=== PATIENT | female | born 1945 | race Caucasian/White ===

== ENCOUNTER → 2017-01-08 | Outpatient (CLI) | payer BC, MEDICARE ==
--- NOTE | 2017-01-08 16:19 | CT ---
EXAMINATION TYPE: CT sinus wo con DATE OF EXAM: 01/08/2017 COMPARISON: NONE HISTORY: Patient complains of chronic sinus drainage and stuffiness. CT DLP: 590.1 mGycm Automated exposure control for dose reduction was used. FINDINGS: Helical acquisition through the sinuses. Minimal inflammatory change present within the right maxillary sinus. Antrostomies have been performe d bilaterally. No air-fluid level to suggest acute sinusitis. Orbits show symmetric appearance. Visua lized brain shows some cortical atrophy which is likely age-related. Cerebral vascular calcifications are noted. IMPRESSION: POSTOP CHANGE, MINIMAL INFLAMMATORY CHANGE RIGHT MAXILLARY SINUS
== END | disposition home or self-care (01) ==
LOC: RADCTMAIN 15:50
PROVIDERS: ATTEND Otolaryngology
DX: J32.0 Chronic maxillary sinusitis (principal)
CPT/HCPCS: 70486

== ENCOUNTER → 2019-06-19 | Outpatient (CLI) | payer BC ==
--- NOTE | 2019-06-20 10:08 | MM ---
Reason for exam: screening (asymptomatic). Last mammogram was performed 3 years and 10 months ago. History: Patient is postmenopausal and is nulliparous. Family history of premenopausal breast cancer in maternal cousin at age 38. Benign excisional biopsy of the left breast, 1997. Reductions of both breasts. Took hormonal contraceptives for 5 years beginning at age 27. Took estrogen for 1 year 2 months beginning at age 61. Took progesterone for 15 years beginning at age 42. Physical Findings: A clinical breast exam by your physician is recommended on an annual basis and results should be correlated with mammographic findings. MG 3D Screening Mammo W/Cad Bilateral CC and MLO view(s) were taken. Prior study comparison: November 27, 2011, CAD bilateral diagnostic mammogram. October 28, 2010, bilateral digital screening mammo w/CAD. The breast tissue is heterogeneously dense. This may lower the sensitivity of mammography. Finding #1: Stable architectural distortion in the upper outer quadrant of the left breast consistent with known excisional biopsy. Finding #2: There are typically benign round calcifications in both breasts. There is no discrete abnormality. ASSESSMENT: Benign, BI-RAD 2 RECOMMENDATION: Routine screening mammogram of both breasts in 1 year.
== END | disposition home or self-care (01) ==
LOC: RADMAMWWP 13:10
PROVIDERS: ATTEND Family Medicine
DX: Z12.31 Encounter for screening mammogram for malignant neoplasm of breast (principal)
CPT/HCPCS: 77063; 77067

== ENCOUNTER → 2020-04-12 | Outpatient (CLI) | payer BC | END | disposition home or self-care (01) | LOC: LABWHC1 13:49 | PROVIDERS: ATTEND Internal Medicine Hematology & Oncology | DX: I10 Essential (primary) hypertension (principal); E03.9 Hypothyroidism, unspecified | CPT/HCPCS: U0003; C9803 ==

== ENCOUNTER 2021-06-20 09:25 | Day surgery (SDC) | payer BC ==
[2021-06-18 10:09] VITALS: BMI 24.0
[~2021-06-20 09:25] MED LIST: LACTATED RINGERS 1,000 ML IV SCH; LIDOCAINE 1% (10MG/ML) FOR IV START INTRADERMA PRN
[2021-06-20 09:47] VITALS: TEMP 96.8
[2021-06-20] MEDS ORDERED: ONDANSETRON 4 MG/2 ML VIAL ONE (09:52)
[2021-06-20] MEDS ORDERED: LIDOCAINE 1% INJ 10MG/ML (20 ML MDV) ONE (10:07)
[2021-06-20] MEDS ORDERED: PROPOFOL 10 MG/ML 20 ML VIAL IV ONE (10:07)
--- NOTE | 2021-06-20 10:35 | P.PCN ---
Date of Procedure: 06/20/21 Preoperative Diagnosis: GERD Screening Postoperative Diagnosis: Gastritis Duodenitis Incomplete colonoscopy, poor prep Procedure(s) Performed: EGD with biopsy Incomplete colonoscopy Anesthesia: MAC Surgeon: Curry Callaway Pathology: other (Biopsies of the esophagus, antrum, duodenum) Condition: stable Disposition: same day Indications for Procedure: 76-year-old female presents today for upper and lower endoscopy. She does have a history of gastric esophageal reflux disease. He is due for screening colonoscopy. Risks, benefits and alternatives were provided to the patient. She did provide consent prior to attending the endoscopy suite. Operative Findings: Gastritis Duodenitis Solid stool within the colon with decreased visibility, incomplete colonoscopy Description of Procedure: The patient was brought to the endoscopy suite and placed in left lateral decubitus position and adequate sedation was achieved using conscious sedation. A bite block was placed and an endoscope was placed in the oropharynx and advanced under endoscopic visualization. The endoscope was advanced through the esophagus into the stomach, through the gastric antrum and into the pylorus. The third portion of the duodenum was visualized. The endoscope was then slowly withdrawn. The first portion the duodenum was noted to have inflammatory changes. Biopsies were taken. The antrum was noted to have inflammatory changes. Biopsies were taken. The gastric body distended normally and the gastric folds appeared normal and flattened with insufflation. A retroflexed view of the fundus and GE junction revealed an overall intact previous wrap repair. The distal esophagus appeared endoscopically normal and widely patent. No evidence of stenosis or stricture of the entire esophagus. Excess air was removed and the scope was withdrawn. A digital rectal exam was performed and mild internal hemorrhoids were palpated. An endoscope was then placed in the rectum and advanced to approximately the 30 cm kalin. The prep was quite poor. Solid stool still remained throughout the colon and visibility was extremely diminished. Secondary to this, continuing was deemed unsafe with no visibility and it was decided to abort the procedure. Excess air was removed, the colonoscope withdrawn and the procedure terminated. The patient was then transferred to the recovery unit in stable condition. Repeat colonoscopy should be performed in the next year for screening purposes with different prep.
[2021-06-20 10:54] VITALS: BP 136/81; PULSE 71; RESP 18
== END 2021-06-20 11:20 | disposition home or self-care (01) ==
LOC: ORWHC2ENDO 09:25
PROVIDERS: ATTEND Surgery
DX: Z12.11 Encounter for screening for malignant neoplasm of colon (principal); K29.70 Gastritis, unspecified, without bleeding; K29.80 Duodenitis without bleeding; K21.00 Gastro-esophageal reflux disease with esophagitis, without bleeding
CPT/HCPCS: 88305; 45378; 43239; J2405; J2001; J2704

== ENCOUNTER → 2022-02-25 | Outpatient (CLI) | payer BC ==
--- NOTE | 2022-02-25 11:01 | MM ---
Reason for Exam: Clinical finding. Additional evaluation requested from abnormal screening. Last mammogram was performed 2 year(s) and 8 month(s) ago. Indicated Problems: Lump or thickening of the left side (size 20) for 3 Day(s). Patient History: Menarche at age 13. Patient has no children. Left ovary removed at age 42. Right ovary removed at age 42. Hysterectomy at age 35. Postmenopausal. Estrogen for 4 years from age 61 until age 65. Progesterone for 15 years from age 42 until age 57. Hormonal Contraceptives for 5 years from age 27 until age 32. Bilateral Reduction. 1997, Benign Excisional Biopsy on the left side. Maternal cousin had breast cancer, age 38. Risk Values: Yajaira 5 year model risk: 2.3%. NCI Lifetime model risk: 4.7%. Prior Study Comparison: 08/17/2013 Screening Mammogram, [facility]. 08/28/2013 Screening Mammogram, [facility]. 07/09/2015 Screening Mammogram, [facility]. 08/12/2015 Screening Mammogram, [facility]. 06/19/2019 Bilateral Screening Mammogram, [facility]. Tissue Density: The breast tissue is heterogeneously dense. This may lower the sensitivity of mammography. Findings: Analyzed By CAD. Mammogram There is new distortion corresponding to palpable abnormality in the upper-outer aspect left breast. Benign-appearing bilateral axillary lymph nodes are redemonstrated. Occasional scattered benign-appearing round calcifications in bilateral breasts is again seen.. Technique: Method: Targeted. Findings: The upper outer quadrant of the left breast and the axilla of the left breast were scanned. Targeted ultrasound left breast 2:00 level approximate 5 cm distance from nipple shows 1.2 x 1.7 irregular hypoechoic mass with some posterior shadowing and some superficial vascularity. Finding worrisome for neoplasm favored over scar tissue. Scanning of the left axilla shows benign appearing subcentimeter lymph node. Overall Assessment: Suspicious, BI-RAD 4 Assessment: MG 3D diag mammo w/cad [place] - Bilateral: Suspicious, BI-RAD 4 - Left. US breast limited LT - Left: Suspicious, BI-RAD 4. Management: Ultrasound Core Biopsy of the left breast. Ultrasound core biopsy left breast 2:00 lesion. Results were given to the patient verbally at the time of exam. Electronically signed and approved by: Den Stone M.D.
== END | disposition home or self-care (01) ==
LOC: RADMAMWWP 08:38
PROVIDERS: ATTEND Family Medicine
DX: R92.8 Other abnormal and inconclusive findings on diagnostic imaging of breast (principal); Z78.0 Asymptomatic menopausal state; Z80.3 Family history of malignant neoplasm of breast
CPT/HCPCS: 77062; 77066

== ENCOUNTER → 2022-03-04 | Day surgery (SDC) | payer BC ==
--- NOTE | 2022-03-09 12:09 | MM ---
Reason for Exam: Post Procedure Mammogram. Last screening mammogram was performed less than 1 month ago. Patient History: Menarche at age 13. Patient has no children. Left ovary removed at age 42. Right ovary removed at age 42. Hysterectomy at age 35. Postmenopausal. Estrogen for 4 years from age 61 until age 65. Progesterone for 15 years from age 42 until age 57. Hormonal Contraceptives for 5 years from age 27 until age 32. Bilateral Reduction. 1997, Benign Excisional Biopsy on the left side. Maternal cousin had breast cancer, age 38. Risk Values: Yajaira 5 year model risk: 2.3%. NCI Lifetime model risk: 4.7%. Prior Study Comparison: 08/12/2015 Screening Mammogram, [facility]. 06/19/2019 Bilateral Screening Mammogram, [facility]. 02/25/2022 Bilateral MG 3D diag mammo w/cad [place], [facility]. Tissue Density: Left: The breast tissue is heterogeneously dense. This may lower the sensitivity of mammography. Pathology Description: Location: 2 o'clock. Cores: 4 Gauge: 12 The procedure of ultrasound guided core biopsy was explained to the patient. Benefits, alternatives, and risks were discussed. An informed consent was then obtained. The patient was placed in supine positioning for imaging and for the procedure. The overlying skin was prepped and draped in usual sterile fashion. Lidocaine buffered with bicarbonate was used as anesthetic into the skin and subcutaneous tissue up to area of concern in the left 2:00 breast. A nicki was made with surgical scalpel. Under ultrasound guidance, a 12-gauge vacuum assisted biopsy gun device was used to obtain core samples. Following this, a biopsy clip was left in lesion. The patient tolerated the procedure well without any immediate complication. The patient was kept in the radiology department for short stay after the procedure and then discharged home in stable condition. Impression: Successful, uncomplicated ultrasound guided core biopsy of area of concern in the breast, full pathology results to follow. Pathology Results: Result: Malignant, Invasive ductal carcinoma. LEFT BREAST, TWO O'CLOCK, ULTRASOUND GUIDED NEEDLE CORE BIOPSY: Invasive moderately differentiated ductal carcinoma (Grade 2). See Surgical Pathology Cancer Case Summary and Comment. Overall Assessment: Malignant Assessment: MG diagnostic mammo LT wo CAD. - Left: Known biopsy proven malignancy, BI-RAD 6. Management: Surgical Consultation of the left breast. (therapy and follow up). Electronically signed and approved by: Jude Wu M.D. Radiologis
== END ==
LOC: RADUSWWP 07:39
PROVIDERS: ATTEND Surgery
DX: D05.12 Intraductal carcinoma in situ of left breast (principal); Z17.0 Estrogen receptor positive status [ER+]; Z91.041 Radiographic dye allergy status; Z79.899 Other long term (current) drug therapy; Z79.890 Hormone replacement therapy; Z80.1 Family history of malignant neoplasm of trachea, bronchus and lung
CPT/HCPCS: 88305; 88342; 88341; 77065; 19083; A4648

== ENCOUNTER → 2022-04-28 | Outpatient (CLI) | payer BC ==
[2022-04-29 01:03] LABS: HCT 36.4 % (37.2-46.3); MCH 32.9 pg (27.0-32.0); MCV 99.7 fL (80.0-97.0); Mean Platelet Volume 10.7 fL (9.5-12.2); NRBC Per 100 WBC 0 /100 WBCS (0.0-0.0); Platelet Count 361 X 10*3/uL (140-440); RBC 3.65 X 10*6/uL (4.10-5.20); RDW 13.3 % (11.5-14.5); WBC 8.63 X 10*3/uL (4.50-10.00)
== END | disposition home or self-care (01) ==
LOC: LABWHC1 15:32
PROVIDERS: ATTEND Orthopaedic Surgery
DX: E78.5 Hyperlipidemia, unspecified (principal); M16.11 Unilateral primary osteoarthritis, right hip
CPT/HCPCS: 36415; 85027

== ENCOUNTER → 2023-08-20 | Outpatient (CLI) | payer BC ==
[2023-08-20 18:37] LABS: ALT 26 U/L (8-44); AST 22 U/L (13-35); Albumin 4.3 g/dL (3.8-4.9); Albumin/Globulin Ratio 2.15 Ratio (1.60-3.17); Alkaline Phosphatase 100 U/L (41-126); Blood Urea Nitrogen 21.4 mg/dL (9.0-27.0); Calcium 9.8 mg/dL (8.7-10.3); Chloride 101 mmol/L (96-109); Chol/HDL Ratio 2.21 Ratio; Glucose 87 mg/dL (70-110); LDL Cholesterol,Calculated 66.3 mg/dL (0.0-131.0); Sodium 136 mmol/L (135-145); Total Bilirubin 0.7 mg/dL (0.3-1.2); Total Protein 6.3 g/dL (6.2-8.2); VLDL Calculation 13.18 mg/dL (5.00-40.00)
== END | disposition home or self-care (01) ==
LOC: LABWHC1 13:13
PROVIDERS: ATTEND Internal Medicine Interventional Cardiology
DX: E78.2 Mixed hyperlipidemia (principal)
CPT/HCPCS: 36415; 80053; 80061

== ENCOUNTER → 2024-01-04 | Outpatient (CLI) | payer BC | END | disposition home or self-care (01) | LOC: LABWHC1 15:04 | PROVIDERS: ATTEND Family Medicine | DX: L65.9 Nonscarring hair loss, unspecified (principal) | CPT/HCPCS: 36415; 84443 ==

== ENCOUNTER → 2024-01-27 | Outpatient (CLI) | payer BC ==
[2024-01-27 18:16] LABS: Basophils # (A) 0.09 X 10*3/uL (0.00-0.10); Basophils % (A) 1.1 %; Eosinophils # (A) 0.11 X 10*3/uL (0.04-0.35); Eosinophils % (A) 1.3 %; HCT 33.3 % (37.2-46.3); HGB 11.2 g/dL (12.0-15.0); Lymphocytes # (A) 1.37 X 10*3/uL (0.90-5.00); Lymphocytes % (A) 16.2 %; MCH 33.4 pg (27.0-32.0); MCHC 33.6 g/dL (32.0-37.0); MCV 99.4 FL (80.0-97.0); Mean Platelet Volume 10.1 FL (9.5-12.2); Monocytes # (A) 0.81 X 10*3/uL (0.20-1.00); Monocytes % (A) 9.6 %; NRBC Per 100 WBC 0 X 10*3/uL (0.00-0.01); Neutrophils # (A) 6.02 X 10*3/uL (1.80-7.70); Neutrophils % (A) 71.1 %; Platelet Count 356 X 10*3/uL (140-440); RBC 3.35 X 10*6/uL (4.10-5.20); RDW 13.2 % (11.5-14.5); WBC 8.46 X 10*3/uL (4.50-10.00)
[2024-01-27 18:48] LABS: % Iron Saturation 26.01 (12.00-45.00); ALT 30 U/L (8-44); AST 29 U/L (13-35); Albumin 4.6 g/dL (3.8-4.9); Albumin/Globulin Ratio 2.19 Ratio (1.60-3.17); Alkaline Phosphatase 107 U/L (41-126); Blood Urea Nitrogen 11.6 mg/dL (9.0-27.0); Calcium 9.8 mg/dL (8.7-10.3); Carbon Dioxide 24.9 mmol/L (21.6-31.8); Chloride 97 mmol/L (96-109); Ferritin 60.1 ng/mL (10.0-291.0); Globulin 2.1 g/dL (1.6-3.3); Glucose 77 mg/dL (70-110); Iron 109 UG/DL (50-170); Potassium 3.8 mmol/L (3.5-5.5); Sodium 137 mmol/L (135-145); Total Bilirubin 0.5 mg/dL (0.3-1.2); Total Iron Binding Capacity 419 UG/DL (228-460); Total Protein 6.7 g/dL (6.2-8.2)
== END | disposition home or self-care (01) ==
LOC: LABWHC1 15:16
PROVIDERS: ATTEND Dermatology
DX: L65.0 Telogen effluvium (principal); L65.8 Other specified nonscarring hair loss
CPT/HCPCS: 36415; 80053; 82306; 82626; 82728; 83498; 83540; 83550; 84402; 84403; 85025